=== PATIENT | male | born 1975 | race African-American/Black ===

== ENCOUNTER 2018-10-05 09:51 | Emergency (ER) | payer SELFPAY ==
[~2018-10-05] VITALS: Ht 175.3 cm; Wt 73.5 kg
[2018-10-05 11:28] VITALS: BP 143/85
== END 2018-10-05 12:18 | disposition home or self-care (01) ==
LOC: ER 10:00
DX: R10.30 Lower abdominal pain, unspecified (principal); R11.2 Nausea with vomiting, unspecified; Z88.1 Allergy status to other antibiotic agents